=== PATIENT | female | born 1980 | race Caucasian/White ===

== ENCOUNTER → 2019-11-12 09:27 | Outpatient (CLI) | payer BC, SELFPAY ==
--- NOTE | ~2019-11-12 | MMUS_ITS ---
EXAMINATION: MM diagnostic mammo unilat LT, US breast LT limited HISTORY: Left breast masses on screening mammogram TECHNIQUE: Additional 3-D tomosynthesis images of the left breast were performed and synthetic 2-D im ages were generated. CAD analysis was submitted and interpreted. High resolution limited left breast ultrasound was performed. COMPARISON: 10/27/2019 FINDINGS: MAMMOGRAPHIC FINDINGS: There is a persistent 7.2 x 5.9 mm oval, circumscribed, high density mass with central lucency in the posterior third of the upper outer quadrant of the breast at the 1:00 location 7 cm from the nipple. A 6.1 x 3.6 mm mass with similar mammographic features is seen in the middle third of the breast at the 2:00 location 4 cm from the nipple. ULTRASOUND: Masses at the 1:00 location 6 cm from the nipple and 3:00 location 4 cm from the nipple corresponding to the mammographic findings in question and have the appearance of intramammary lymph nodes. IMPRESSION: 1. No mammographic or sonographic evidence of malignancy. 2. Recommend routine screening mammography in one year. BI-RADS Category 2: Benign finding(s). Reviewed, dictated and finalized at location A. [facility] IMPRESSION: 1. No mammographic or sonographic evidence of malignancy. 2. Recommend routine screening mammography in one year. BI-RADS Category 2: Benign finding(s).
== END ==
PROVIDERS: PCP Internal Medicine; Visit Provider Obstetrics & Gynecology
DX: R92.2 Inconclusive mammogram (principal)
CPT/HCPCS: 76642; 77065

== ENCOUNTER 2021-11-07 08:51 | Outpatient (CLI) | payer BC, SELFPAY ==
--- NOTE | 2021-11-07 08:45 | ECG_ITS ---
Measurements Intervals [place] Rate: 87 P: 53 [place]: 145 QRS: 21 QRSD: 84 T: 72 QT: 351 QTc: 423 Interpretive Statements SINUS RHYTHM DELAYED PRECORDIAL R/S TRANSITION BORDERLINE ST-T WAVE ABNORMALITY- HIGH LATERAL LEADS BASELINE ARTIFACT- I, III, AVR, AVL, AVF BORDERLINE ECG Electronically Signed On 11-07-2021 9:23:14 [employer]ARM [employer]QU[employer]MENT SERVICE TECHNICIAN by Rasta Gibbs D.O.
== END 2021-11-07 08:52 | disposition home or self-care (01) ==
LOC: ANHSURGERY 08:54
PROVIDERS: PCP Internal Medicine; Visit Provider Obstetrics & Gynecology
DX: N94.6 Dysmenorrhea, unspecified (principal); I10 Essential (primary) hypertension; Z01.818 Encounter for other preprocedural examination; R94.31 Abnormal electrocardiogram [ECG] [EKG]
CPT/HCPCS: 36415; 86850; 86900; 86901; 93005

== ENCOUNTER 2021-11-08 01:15 | Day surgery (SDC) | payer BC, SELFPAY ==
[2021-11-03 17:17] VITALS: BMI 29.2
--- NOTE | 2021-11-03 17:40 | PC.NURSE ---
Report to the Outpatient Waiting Room, entrance under the green pavilion located off [facility], at time 0600 on date11/08/21. OR Time: 0730. - You and your visitor will be asked a series of questions to screen for COVID 19 for your protection. - A mask is required within the hospital. - Only one visitor is allowed at this time. Patient visitors will be guided where to wait when not with patient. Preoperative COVID Testing Requirements: No COVID Test needed if: (proof is required; if not received patient will have Rapid Test prior to entry) - Patient has received COVID Vaccine at least 14 days prior to procedure date or - Patient has positive COVID test result within last 90 days of surgery date. COVID Test needed if above criteria is not met If not COVID vaccinated a COVID test must be conducted within 72 hours of surgery and patient is asked to isolate self from time of testing until procedure. You will go to the [facility] for your COVID testing. The [facility] is located at the corner of [address] [facility]. You will only be called if COVID results are positive and your surgeon may reschedule your elective surgery date. Patients may have clear liquids (water, carbonated beverages, clear teas, apple juice) until 3 hours prior to surgery with a maximum of 20 ounces. - No food from midnight until time of surgery - Infants may have breast milk until 4 hours before surgery, infant formula 6 hours prior to surgery. - Children will be allowed to drink immediately following surgery. If applicable, please bring a bottle or sippy cup to assist with drinking. Juice, water, soda, and popsicles are readily available. For infants on formula, please bring formula the day of surgery. Pacifiers are allowed. Take the following medications with a SIP of water the morning of surgery: n/a Medications to discontinue per physician losartan Date to take last dose 11/07/21 Please no make-up, nail indonesian, hairspray, perfume, deodorant, or body powder the day of surgery. No jewelry (including any body piercings) or valuables the day of surgery, leave them at home. Please take a shower or bath the night before, or the morning of, surgery with an antibacterial soap. Wear comfortable, loose fitting clothing. Children are encouraged to wear pajamas. - Jewelry must be removed prior to entering the operating room. Rings and piercings that are not removed may be cut off. - The hospital will not accept responsibility for valuables. - Please leave all valuables, including medications, at home the day of surgery. If you are going home after surgery, a licensed bulk tank driver must drive you home. - NO public transportation without another adult. - We recommend that an adult stay with you for 24 hours following discharge. - We also recommend that you do not drive, make important decision, drink alcoholic beverages, or take any drugs that were not prescribed by your health care provider for at least 24 hours after your discharge time. For Pediatric surgeries, we recommend two adults accompany the child home (only one inside the building at this time). Follow any additional instructions given to you from your surgeon. Telephone instructions given to Lanette James and asked if any additional questions and then verbalized understanding. Patient advised to call surgeon office or pre surgery nurse liaison [phone] if any additional questions.
[2021-11-08] VITALS (15 sets, daily range): BP systolic 127–175; BP diastolic 70–100; PULSE 55–90; RESP 11–20; TEMP 36.1–36.7; O2SAT 96–100
[2021-11-08] MEDS: LACTATED RINGERS 1,000 ML 30 ML IV CONT ×2 (06:35→10:00)
[2021-11-08] MEDS: ACETAMINOPHEN 500 MG TABLET 1000 MG PO (06:36)
[2021-11-08] MEDS: KETOROLAC 15 MG/ML VIAL (*BKC) IV PUSH (06:38)
--- NOTE | 2021-11-08 06:59 | P.PNAN_ITS ---
Anes - Initial Pre Proc Eval Procedure: Operation Date: 11/08/21 07:30 Proposed Procedures p Total Laparoscopic Hysterectomy with Bilateral Salpingectomy - Sachin Leggett MD Date/Time: 11/08/21 06:59 Surgeon: Sachin Leggett MD Pre Op Diagnosis: dysmenorrhea, failed previous medical treatment Patient Data Age: 41 Gender: F Height: 1.68 m Weight: 83 kg Last Vital Signs Temp 36.1 C L 11/08/21 06:18 Pulse 72 11/08/21 06:18 Resp 16 11/08/21 06:18 BP 130/82 11/08/21 06:18 Pulse Ox 99 11/08/21 06:18 Allergies Allergy/AdvReac Type Severity Reaction Status Date / Time Penicillins Allergy Unknown Verified 11/08/21 06:22 Home Medications Medication Instructions Recorded Confirmed Type duloxetine 60 mg capsule,delayed 60 mg PO DAILY 10/26/19 11/08/21 History release topiramate 25 mg tablet 25 mg PO DAILY 10/26/19 11/08/21 History losartan 25 mg tablet 25 mg PO DAILY #90 tablet 06/14/21 11/08/21 Rx Laboratory Tests 11/08/21 06:31 Beta HCG, Quant Pending Patient hx anesthesia problems: none Family hx anesthesia problems: none Results Review: All pre-operative results and documents have been reviewed as part of the pre-operative evaluation. [facility] Past Medical History Medical History ADD (attention deficit disorder) Allergies HTN (hypertension) Migraines Surgical History Surgical History Delivery by section History of surgery on arm left arm and hand surgery post dog bite Family History Family History Father HLD (hyperlipidemia) Heart problem Social History Social History Smoking status: Never smoker Alcohol intake: current Alcohol use details: socially Substance use: current Substance use type: marijuana Last use: 11/03/2021 Living arrangements: with family Spiritual care concerns: No Anes - Eval Final PreProcedure Day of Procedure 01/26/22 06:59 Patient weight: overweight Heart: regular rate and rhythm Lungs: clear to auscultation Airway: Mallampati scale class III Neurological: alert and oriented Last oral intake: >/= 8 hours ASA classification: II Emergent: no Anesthetic plan: proceed Anesthesia type and monitoring: general ETT and standard monitoring Results Review: All pre-operative results and documents have been reviewed as part of the pre-operative evaluation. Informed Consent: The patient's anesthetic plan and its attendant risks and benefits were discussed with the patient/family/POA. Questions were solicited and answers provided to the satisfaction of the patient/family/POA.
[2021-11-08] MEDS: SCOPOLAMINE 1.5 MG PATCH TRANSDERM (07:02)
--- NOTE | 2021-11-08 07:08 | WPDHPUPDATE1 ---
History and Physical Update Update Date/Time: 11/08/21 07:08 History and Physical has been reviewed, including an updated exam of the patient. There are NO changes in the patient's condition. Risks, benefits, and alternatives have been discussed and questions answered. Patient agrees to proceed with procedure.
[2021-11-08 07:17] LABS: Beta HCG Quantitative < 2.39 mIU/ML
[2021-11-08] MEDS: ceFAZolin 2 GM/D5W 50 ML 2 GM/50 ML BAG IVPB (07:44)
--- NOTE | 2021-11-08 10:09 | P.OP_ITS ---
Procedure Note - Detailed Date of Procedure 11/08/21 Pre-op Diagnosis dysmenorrhea, failed previous medical treatment Post-op Diagnosis same Procedure Performed Total laparoscopic hysterectomy and bilateral salpingectomy. Left ovarian cy stectomy Surgeon Sachin Leggett MD Anesthesia general Indications Severe dysmenorrhea Findings Moderate sized uterus, normal appearing ovaries with left ovarian cyst and normal-appearing tubes. Description of Procedure This patient was taken to the operating room. She was prepped and draped in the dorsal lithotomy position after induction of general anesthesia. The uterine manipulator and Lars cup were placed. This was done with a speculum and tenaculum. The speculum was placed. The cervix was grasped with a tenaculum. The stay sutures were placed at 3 and 9:00 a.m.. The stay sutures of 0 Vicryl were brought through the appropriately sized Lars cup. The tip of the REGINA manipulator was placed in the intrauterine cavity. The cup was slid into place around the cervix and into the fornices. It was locked into place. The sutures were then wrapped around the handle and tied under tension. A 5 mm skin incision was made in the left upper quadrant the abdomen. A 5 mm trocar was inserted into the intrauterine cavity under direct visualization of the scope. Pneumoperitoneum was achieved. A left lower quadrant 11 mm incision was made with scalpel. An 11 mm trocar was inserted into the anterior abdominal cavity under direct visualization the scope. A 5 mm infraumbilical incision was made with a scalpel and a 5 mm trocar was inserted the intra-abdominal cavity under direct visualization of the scope. Left ovarian cystectomy was performed using sharp and blunt dissection and cautery. Bilateral ureteral lysis was performed. This was done from the pelvic brim down to the uterine artery. This was done with careful dissection using sharp and blunt dissection. The fallopian tubes were removed bilaterally. The mesosalpinx around the fallopian tubes were cauterized transected with LigaSure cautery. This was done in a bilateral fashion from the ovary to the uterine cornua. The fallopian tube was transected at the uterine cornu and amputated. The tube was taken out the left lower quadrant trocar site. In a stepwise fashion along the lateral aspects of the uterus the round ligament and broad ligaments were cauterized transected down to the level of the uterine arteries. A bladder flap was created in the bladder was moved distally to the end of the cervix and over the Lars cup. The bilateral uterine arteries were cauterized and transected. Colpotomy was then performed. In a circumferential fashion the vagina was transected using unipolar cautery. The incision was made down on the Lars cup. The uterus and cervix were taken out through the vagina. A pneumo occluder was placed in the vagina. The vaginal cuff was closed with a 0 V lock suture in a running fashion. The pelvis was irrigated with copious amounts antibiotic irrigation. The ureters were again examined and found to be intact and flowing freely under the uterine arteries into the bladder. The bladder was intact. It was examined directly. The vagina was irrigated with Betadine solution after removal of the Pneumo occluder. The patient was taken to recovery room. She was stable condition. Sponge lap and needle counts were correct x2. Estimated Blood Loss 100 Urine Output -850.0 Drains Yes Packing No Pathology yes Complications No immediate complications Condition stable Disposition floor
[2021-11-08] MEDS: fentaNYL CITRATE INJ (*CRX) 100 MCG/2 ML VIAL 25 MCG IV PUSH ×7 (10:21→12:25)
--- NOTE | 2021-11-08 12:45 | PC.NURSE ---
This patient, Lanette James, was received from PACU on 11/08/21 at 1245. Patient/family oriented to unit policies and routines
[2021-11-08] MEDS: DEXTROSE 5%/0.45% SOD CHL 1,000 ML 125 ML IV CONT (13:29)
[2021-11-08] MEDS: KETOROLAC 30 MG/ML VIAL (*BKC) IV PUSH (13:30)
[2021-11-08] MEDS: HYDROcodone/acetaminophen (*CRX) 10-325 MG TABLET 1 TAB PO ×2 (14:43→20:19)
[2021-11-08] MEDS: DULoxetine HCL 60 MG CAPSULE.DR PO (14:44)
[2021-11-08] MEDS: TOPIRAMATE 25 MG TABLET PO (20:19)
[2021-11-08] MEDS: LOSARTAN POTASSIUM 25 MG TABLET PO (20:19)
[2021-11-09 00:10] VITALS: BP 128/85; PULSE 78; RESP 18; TEMP 37.1
[2021-11-09] MEDS: IBUPROFEN 600 MG TABLET PO ×2 (00:10→08:51)
[2021-11-09] MEDS: HYDROcodone/acetaminophen (*CRX) 10-325 MG TABLET 1 TAB PO ×3 (00:11→08:50)
[2021-11-09 05:26] VITALS: BP 130/85; PULSE 82; RESP 16; TEMP 37.1
--- NOTE | 2021-11-09 08:05 | PM.GYNPNOP ---
[employer] - A/P Postoperative Procedures: Procedures Operation Date: 11/08/21 07:30 Actual Procedure Side Surgeon p Total Laparoscopic Hysterectomy with Bilateral Salpingectomy Bilateral Sachin Leggett MD Postoperative day: 1 Postoperative status: doing well Postoperative plan: see orders Time Spent With Patient Time: Total time spent is greater than 50% in coordination of care (as documented) at patient's floor/unit and/or counseling patient: Time with patient: less than 15 minutes [employer]- PN:Subj Post-Op Subjective Date/time seen: 11/09/21 08:05 Subjective: patient reports feeling better, patient has no complaints and pain is well controlled Exam Const: General: healthy appearing, comfortable and no acute distress Resp: Auscultation: clear to auscultation bilaterally, no rales, no rhonchi and no wheezes Cardio: Rate: regular rate Heart sounds: no click, no murmurs and no rubs GI: Inspection: non-distended Auscultation: normal bowel sounds Extrem: General: normal to inspection, no pedal edema and no calf tenderness [employer] - PN: Obj Data Vital Signs Vital Signs: Vital Signs - 24 hr 11/08/21 10:00 11/08/21 10:15 11/08/21 10:30 Temperature 97.6 F Pulse Rate 77 55 L 61 Respiratory Rate 11 L 17 15 Blood Pressure 132/70 159/86 H 163/84 H Pulse Oximetry 100 100 100 11/08/21 10:45 11/08/21 11:00 11/08/21 11:15 Temperature Pulse Rate 64 79 80 Respiratory Rate 14 15 11 L Blood Pressure 175/92 H 166/86 H 140/93 H Pulse Oximetry 100 100 96 11/08/21 11:30 11/08/21 11:45 11/08/21 12:00 Temperature Pulse Rate 56 L 70 80 Respiratory Rate 15 14 12 Blood Pressure 142/92 H 155/96 H 147/99 H Pulse Oximetry 96 96 96 11/08/21 12:15 11/08/21 12:27 11/08/21 12:45 Temperature 97.3 F L 98.0 F Pulse Rate 90 64 81 Respiratory Rate 14 13 18 Blood Pressure 160/100 H 141/98 H 127/79 Pulse Oximetry 98 99 97 11/08/21 16:00 11/08/21 20:18 11/09/21 00:10 Temperature 98.1 F 98 F 98.7 F Pulse Rate 83 90 78 Respiratory Rate 16 16 18 Blood Pressure 146/82 H 141/84 H 128/85 Pulse Oximetry 98 11/09/21 05:26 Temperature 98.8 F Pulse Rate 82 Respiratory Rate 16 Blood Pressure 130/85 Pulse Oximetry Intake/Output Intake/Output: Intake & Output 11/06/21 11/07/21 11/08/21 11/09/21 23:59 23:59 23:59 23:59 Intake Total 1250 650 Output Total 900 550 Balance 350 100 Meds/Results Medications: Active Medications Generic Name Dose Route Start Last Admin Trade Name Freq PRN Reason Stop Dose Admin Hydrocodone Bitart/Acetaminophen 1 tab 11/08/21 12:42 Hydrocodone/Acetaminophen (*Crx) 5-325 Mg Tablet PO Q3H PRN Pain Rated 5 or Less Hydrocodone Bitart/Acetaminophen 1 tab 11/08/21 12:42 11/09/21 05:33 Hydrocodone/Acetaminophen (*Crx) 10-325 Mg Tablet PO 1 tab Q3H PRN Administration Pain Rated 6 or Greater Duloxetine HCl 60 mg 11/08/21 13:00 11/08/21 14:44 Duloxetine Hcl 60 Mg Capsule.Dr PO 60 mg DAILY VLADIMIR Administration Ibuprofen 600 mg 11/08/21 12:42 11/09/21 00:10 Ibuprofen 600 Mg Tablet PO 600 mg Q6H PRN Administration Cramping Ketorolac Tromethamine 30 mg 11/08/21 12:42 11/08/21 13:30 Ketorolac 30 Mg/Ml Vial (*Bkc) IV PUSH 11/13/21 12:41 30 mg Q6H PRN Administration Pain Rated 4-6 Losartan Potassium 25 mg 11/08/21 13:00 11/08/21 20:19 Losartan Potassium 25 Mg Tablet PO 25 mg DAILY VLADIMIR Administration Naloxone HCl 0.1 mg 11/08/21 12:42 Naloxone Hcl 0.4 Mg/Ml Vial IV PUSH Q2M PRN Respiratory rate less than 10 Ondansetron HCl 4 mg 11/08/21 12:42 Ondansetron Inj 4 Mg/2 Ml Vial IV PUSH Q6H PRN Nausea And Vomiting Topiramate 25 mg 11/08/21 13:00 11/08/21 20:19 Topiramate 25 Mg Tablet PO 25 mg DAILY VLADIMIR Administration
[2021-11-09 08:30] VITALS: BP 125/80; PULSE 82; RESP 16; TEMP 37.1; O2SAT 96
[2021-11-09] MEDS: DULoxetine HCL 60 MG CAPSULE.DR PO (08:50)
--- NOTE | 2021-11-09 09:33 | WPDANESPN ---
Anes - Prog Note Post-Op Date/Time: 11/09/21 09:33 Cardiovascular status: normal Respiratory status: normal Airway patency: baseline Mental status: baseline Post-Op hydration status: normal Vital Signs: Last Vital Signs Temp 37.1 C 11/09/21 05:26 Pulse 82 11/09/21 05:26 Resp 16 11/09/21 05:26 BP 130/85 11/09/21 05:26 Pulse Ox 98 11/08/21 16:00 Pain Score (VAS): 3 I/O: Intake & Output 11/08/21 11/09/21 11/09/21 23:59 07:59 15:59 Intake Total 200 650 Output Total 600 550 Balance -400 100 Post-procedural complaints: none Patient Feedback: Patient satisfied with anesthetic care.
== END 2021-11-09 10:40 | disposition home or self-care (01) ==
LOC: ANHSURGERY 07:03 → ANHOB2 12:49
PROVIDERS: Anesthesiology; PCP Internal Medicine; Visit Provider Obstetrics & Gynecology
PROC: 0UT9FZZ Resection of Uterus, Via Natural or Artificial Opening With Percutaneous Endoscopic Assistance (ICD-10-PCS; CPT 58571; principal; 2021-11-08 07:30)
DX: N94.6 Dysmenorrhea, unspecified (principal); E28.2 Polycystic ovarian syndrome; R87.612 Low grade squamous intraepithelial lesion on cytologic smear of cervix (LGSIL); F41.9 Anxiety disorder, unspecified; I10 Essential (primary) hypertension; F17.210 Nicotine dependence, cigarettes, uncomplicated; F98.8 Other specified behavioral and emotional disorders with onset usually occurring in childhood and adolescence; F12.90 Cannabis use, unspecified, uncomplicated
CPT/HCPCS: 58571; 58662; 36415; 84702; 88307; 99199; A9270; J0690; J1100; J1885; J2405; J2704; J2710; J3010; J7120

== ENCOUNTER 2022-03-06 13:31 | Outpatient (RCR) | payer BC, SELFPAY ==
[2022-03-06] MEDS: ACETAMINOPHEN 325 MG TABLET 650 MG PO (13:34)
[2022-03-06] MEDS: FAMOTIDINE 20 MG TABLET PO (13:34)
[2022-03-06] MEDS: diphenhydrAMINE HCl CAP 25 MG CAPSULE PO (13:34)
[2022-03-06 13:36] VITALS: BP 116/88; PULSE 80; RESP 20; TEMP 36.6; O2SAT 100
[2022-03-06] MEDS: BEBTELOVIMAB 175 MG/2 ML VIAL IV PUSH (13:53)
[2022-03-06 14:31] VITALS: BP 111/73; PULSE 66; RESP 20; O2SAT 98
== END 2022-03-06 16:24 ==
LOC: AMCINF 13:31
PROVIDERS: Referring Provider Clinical Nurse Specialist; Visit Provider Internal Medicine Hematology & Oncology
DX: U07.1 COVID-19 (principal); I10 Essential (primary) hypertension
CPT/HCPCS: A9270; M0222; Q0222

== ENCOUNTER 2022-06-26 11:19 | Emergency (ER) | payer BC, SELFPAY ==
[2022-06-26 11:26] VITALS: BP 138/92; PULSE 80; RESP 18; TEMP 36.4; O2SAT 100
--- NOTE | 2022-06-26 11:28 | ED.HEATRA ---
HPI - Head Injury General Chief complaint: Head Injury Stated complaint: head injury Time Seen by Provider: 06/26/22 11:25 Source: patient, RN notes reviewed and old records reviewed Mode of arrival: ambulatory Limitations: no limitations History of Present Illness HPI Narrative: 42-year-old female presents to the [facility] with a laceration that occurred approximately 10 PM last night, 13 hours ago. Patient states she fell backwards hit her head. Reports that she felt dazed and was not making sense. Denies any neck pain or back pain. Reports a headache posteriorly. Has taken Tylenol with some relief. Denies any blurry vision or change in vision. Denies any nausea or vomiting. Denies passing out Unknown last tDap Related Data Home Medications Medication Instructions Recorded Confirmed duloxetine 60 mg capsule,delayed 60 mg PO DAILY 10/26/19 03/06/22 release topiramate 25 mg tablet 25 mg PO DAILY 10/26/19 03/06/22 Allergies Allergy/AdvReac Type Severity Reaction Status Date / Time Penicillins Allergy Unknown Verified 03/06/22 13:37 Review of Systems Review of Systems: All systems reviewed & are unremarkable except as noted in HPI and below Constitutional: Constitutional: Reports no additional constitutional complaints, Denies chills and Denies fever(s) Eyes: Eyes: Reports no additional eye complaints ENT: Reports system reviewed and no additional complaints, except as documented Cardiovascular: Cardiovascular: Reports no additional cardiovascular complaints Respiratory: Respiratory: Reports no additional respiratory complaints Gastrointestinal: Gastrointestinal: Reports no additional gastrointestinal complaints Musculoskeletal: Musculoskeletal: Reports no additional musculoskeletal complaints Integumentary/Breasts: Skin/Breast: Reports as per HPI and Reports wounds Neurologic: Reports as per HPI and Reports headache(s) Psychiatric: Psychiatric: Reports no additional psychiatric complaints Allergic/Immunologic: Allergic/Immunologic: Reports no additional allergic/immunologic complaints [facility] Past Medical History Medical History ADD (attention deficit disorder) Allergies HTN (hypertension) Migraines Surgical History Surgical History Delivery by section History of surgery on arm left arm and hand surgery post dog bite Family History Family History Father HLD (hyperlipidemia) Heart problem Social History Social History Smoking status: Never smoker Alcohol intake: current Alcohol use details: socially Substance use: current Substance use type: marijuana Last use: 11/03/2021 Spiritual care concerns: No Comments At the time of my signature, I reviewed and agree with the nursing past medical, surgical, social, and family history. There is no relevant family history pertinent to the patient complaint. Exam Const: General: healthy appearing, no acute distress and alert Nutritional Appearance: well nourished Orientation/consciousness: patient oriented x3 Limitations: no limitations HENMT: Head: laceration (2.5cm laceration, Bleeding controlled. ) Ears: external ears normal, TM's normal bilaterally and EAC's normal General nose exam: Normal external nose present Face and sinus: normal facial exam Mouth: Yes Normal oral and palatal mucosa present, Yes lip normal and Yes moist mucous membranes Eyes: General: appearance normal, both eyes and all related structures Conjunctivae: conjunctivae normal Pupils: Equal, round and reactive pupils present EOM: EOMs intact bilaterally Direct Ophthalmoscopy: no photophobia Neck: Neck: normal visual inspection, no lymphadenopathy and no meningeal signs Chest: Chest palpation & inspection: normal inspec
[2022-06-26] MEDS: TETANUS,DIPHTHERIA,AC PERTUSSIS ADULT (0.5 ML) BOOSTRIX IM (11:59)
== END 2022-06-26 12:15 | disposition home or self-care (01) ==
PROVIDERS: Emergency Provider Nurse Practitioner; PCP Internal Medicine
DX: S09.90XA Unspecified injury of head, initial encounter (principal); S01.01XA Laceration without foreign body of scalp, initial encounter; W19.XXXA Unspecified fall, initial encounter; Z23 Encounter for immunization; I10 Essential (primary) hypertension
CPT/HCPCS: 12001; 90471; 90715; 99213; G0463

== ENCOUNTER 2022-06-26 16:55 | Emergency (ER) | payer BC, SELFPAY ==
[2022-06-26 17:25] VITALS: BP 145/98; PULSE 68; RESP 18; TEMP 36.1; O2SAT 100
--- NOTE | 2022-06-26 18:41 | PC.NURSE ---
Patient called for room placement at this time without answer in waiting room.
== END 2022-06-26 18:41 | disposition left against medical advice (07) ==
PROVIDERS: PCP Internal Medicine
DX: Z53.21 Procedure and treatment not carried out due to patient leaving prior to being seen by health care provider (principal)
CPT/HCPCS: 99199

== ENCOUNTER 2023-05-19 10:54 | Emergency (ER) | payer BC, SELFPAY ==
[2023-05-19 11:02] VITALS: BP 130/91; PULSE 87; RESP 16; TEMP 36.2; O2SAT 100
--- NOTE | 2023-05-19 11:08 | ED.URI ---
HPI - URI/Sore Throat General Chief Complaint: Ear Stated Complaint: Double Ear infection; poison sharyn Time Seen by Provider: 05/19/23 11:09 Source: patient Mode of arrival: ambulatory Limitations: no limitations History of Present Illness HPI Narrative: 43-year-old female presented for complaint of bilateral ear pressure for 1 week. Endorses it feels like water is in the ear and pain radiates to the neck. Has been swimming in the pool. She has used hydrogen peroxide, pain relief drops with no relief. She denies ear drainage, dizziness, tinnitus, nausea, vomiting, fevers or chills. Additionally she reports poison sharyn to both arms for 1 week. Started after weed eating. She has used [id number] creams without relief. She has not taken oral medications for itch relief. Denies lip, tongue, or throat swelling, shortness of breath or wheezing. Denies changes to soap, detergent, lotion, or any other exposures. No one else in the house or any contacts with similar symptoms. Related Data Home Medications Medication Instructions Recorded Confirmed duloxetine 60 mg capsule,delayed 60 mg PO DAILY 10/26/19 05/19/23 release topiramate 25 mg tablet 25 mg PO DAILY 10/26/19 05/19/23 dextroamphetamine-amphetamine ER 30 mg PO DAILY 02/05/23 05/19/23 30 mg 24hr capsule,extend release ubrogepant 50 mg tablet (Ubrelvy) 50 mg PO ONCE 02/05/23 05/19/23 Allergies Allergy/AdvReac Type Severity Reaction Status Date / Time Penicillins Allergy Unknown Verified 05/19/23 11:03 Review of Systems Review of Systems: CONSTITUTIONAL: Denies malaise, chills, or fever. EYES: Denies visual changes, redness, or discharge. ENT: Denies rhinorrhea, congestion, sinus pain, and sore throat. Reports ear pain CARDIOVASCULAR: Denies chest pain, palpitations, or edema. RESPIRATORY: Denies cough or dyspnea. GASTROINTESTINAL: Denies abdominal pain, nausea, vomiting, diarrhea SKIN: reports rash and itching. MUSCULOSKELETAL: Denies myalgia. NEUROLOGIC: Denies headache. All systems reviewed & are unremarkable except as noted in HPI and below PMFSH Past Medical History Medical History ADD (attention deficit disorder) Allergies HTN (hypertension) Migraines Surgical History Surgical History Delivery by section History of surgery on arm left arm and hand surgery post dog bite Family History Family History Father HLD (hyperlipidemia) Heart problem Social History Social History Smoking status: Never smoker Alcohol intake: current Alcohol use details: socially Substance use: current Substance use type: marijuana Last use: 11/03/2021 Lack of Transportation: No Lack of Food: Never True Current Housing: I Have Housing Concerned About Future Housing: No Difficulty Paying Gas/Electric Bills: No Difficulty Paying for Meds: No Currently Unemployed: No Education: Master's Degree or Higher Difficulty w/ Childcare or Family Care: No Living arrangements: with family Spiritual care concerns: No Comments At time of signature, agree with nursing past medical, surgical, social and family history. There is no relevant family history pertinent to the presenting complaint Exam Narrative: GENERAL: Well-appearing, and in no acute distress. HEAD: Normocephalic EYES: PERRLA, conjunctivae clear ENT: Nares clear. Mucous membranes moist. Left TM pearly plummer with dull light reflex, right TM erythematous and bulging with purulent effusion. Bilateral canals erythematous tender and swollen, no purulent drainage, bilateral tragal tenderness. Oropharynx not erythematous without lesions. Tonsils not enlarged and without exudate, no drooling, no hoarseness, no trismus, uvula midline. NECK: Supple. No lymph
== END 2023-05-19 11:20 | disposition home or self-care (01) ==
PROVIDERS: Emergency Provider Nurse Practitioner Family; PCP Internal Medicine
DX: H60.503 Unspecified acute noninfective otitis externa, bilateral (principal); H66.001 Acute suppurative otitis media without spontaneous rupture of ear drum, right ear; L25.9 Unspecified contact dermatitis, unspecified cause; I10 Essential (primary) hypertension
CPT/HCPCS: 99213; G0463

== ENCOUNTER 2025-03-21 13:28 | Emergency (ER) | payer BC, SELFPAY ==
[2025-03-21 13:39] VITALS: BP 128/84; PULSE 78; RESP 16; TEMP 36.6; O2SAT 100
--- NOTE | 2025-03-21 13:54 | ED.SKABFB ---
HPI - Skin/Abscess/Foreign Bdy General Chief complaint: Skin/Abscess/Foreign Body Stated complaint: poison darlene on face Time Seen by Provider: 03/21/25 13:54 Source: patient Mode of arrival: ambulatory Limitations: no limitations History of Present Illness HPI narrative: 44 y/o female presented for c/o poison darlene rash spreading from arms to face. Says she developed the rash after pulling weeds. Has been applying Tecnu cream to the arms. Denies lip, tongue, or throat swelling, shortness of breath or wheezing. Denies changes to soap, detergent, lotion, or any other exposures. No one else in the house or any contacts with similar symptoms. Related Data Home Medications ?Medication ?Instructions ?Recorded ?Confirmed ?Last Taken ?Type duloxetine 60 mg capsule,delayed 60 mg PO DAILY 10/26/19 03/21/25 11/07/21 History release topiramate 25 mg tablet 25 mg PO DAILY 10/26/19 03/21/25 11/07/21 History ubrogepant 50 mg tablet (Ubrelvy) 50 mg PO ONCE 02/05/23 03/21/25 Unknown History dextroamphetamine-amphetamine 15 15 mg PO BID 08/30/23 03/21/25 Unknown History mg tablet Allergies Allergy/AdvReac Type Severity Reaction Status Date / Time Penicillins Allergy Unknown Verified 03/21/25 14:00 pork derived (porcine) AdvReac Abdominal Verified 03/21/25 14:00 Pain poison darlene Allergy Intermediate Unknown Uncoded 03/21/25 14:00 Review of Systems Review of Systems: CONSTITUTIONAL: Denies body aches, fever, chills, or sweats. EYES: Denies visual changes, redness, or discharge. ENT: Denies rhinorrhea, congestion CARDIOVASCULAR: Denies chest pain, palpitations, or edema. RESPIRATORY: Denies cough or dyspnea. GASTROINTESTINAL: Denies abdominal pain, nausea, vomiting, or diarrhea. SKIN: per HPI MUSCULOSKELETAL: Denies back pain, joint pain, or myalgia. NEUROLOGIC: Denies headache, numbness, tingling, or weakness. [facility] Past Medical History Medical History ADD (attention deficit disorder) Allergies HTN (hypertension) Migraines Sprain of medial collateral ligament of right knee Surgical History Surgical History Delivery by section History of surgery on arm left arm and hand surgery post dog bite Family History Family History Father HLD (hyperlipidemia) Heart problem Social History Social History Smoking status: Never smoker Alcohol intake: current Alcohol use details: socially Substance use: current Substance use type: marijuana Last use: 11/03/2021 Lack of Transportation: No Lack of Food: Never True Current Housing: I Have Housing Concerned About Future Housing: No Difficulty Paying Gas/Electric Bills: No Difficulty Paying for Meds: No Currently Unemployed: No Education: Master's Degree or Higher Difficulty w/ Childcare or Family Care: No Living arrangements: with family Spiritual care concerns: No Comments At time of signature, I have reviewed and agree with nursing past medical, surgical, social and family history unless otherwise noted. Please see nursing chart for further information. There is no relevant family history pertinent to the presenting complaint Exam Narrative: GENERAL: Well-appearing HEAD: Normocephalic, atraumatic. EYES: conjunctivae clear, and EOMI. ENT: Mucous membranes moist. Oropharynx without edema, erythema or lesions. NECK: Supple. No lymphadenopathy CHEST: Clear to auscultation. HEART: Regular rate and rhythm. SKIN: Warm, dry. Face appears erythematous and swollen. Eyes are not occluded. Scattered vesicular rash noted to face and arms c/w contact dermatitis. NEURO: Alert and oriented x3. Course Course Emergency Course: Patient is aware of diagnosis, understands and agrees to treatment plan. Anticipatory guidance given. Patient agrees to follow-up as directed and is aware of reasons to seek care at the emergency department. Portions of this record may have been created with voice recognition software Level of Care: Express Care Visit Vital Signs Vital signs: Vital Signs Temperature 97.9 F 03/21/25 13:39 Pulse Rate 78 03/21/25 13:39 Respiratory Rate 16 03/21/25 13:39 Blood Pressure 128/84 03/21/25 13:39 Pulse Oximetry 100 03/21/25 13:39 Temperature 97.9 F 03/21/25 13:39 Pulse Rate 78 03/21/25 13:39 Respiratory Rate 16 03/21/25 13:39 Blood Pressure 128/84 03/21/25 13:39 Pulse Oximetry 100 03/21/25 13:39 Reviewed MDM - Skin/Abscess/Foreign Bdy MDM Narrative Medical decision making narrative: Discussed physical exam findings. IM Solumedrol given in clinic. Rx steroid and pepcid. Advised supportive measures and signs/symptoms to go to the ER. Pt is appropriate for outpt treatment and f/u. Differential Diagnosis Differential diagnosis: Likely abscess of skin or subcutaneous tissue, viral exanthem, dermatophytosis, urticaria, herpes zoster, cellulitis, eczema, insect bites, impetigo and contact dermatitis Discharge Plan Discharge Clinical Impression: Contact dermatitis Patient Disposition: Home Condition: Stable Instructions: Antibiotic Form, Poison Darlene (ED) Additional Instructions: Take steroids and Pepcid as directed. prednisone start 03/22 Famotidine start today Over the counter Benadryl every 8 hours as needed Cool compresses to the sites of itching, avoid hot water. Avoid scratching to reduce the risk of infection Follow up with your primary care provider as needed in 1 week Go to the ER for worsening symptoms or concerns (lip, tongue, throat swelling/itching, trouble breathing etc) Patient Language: Wolof Prescriptions: New famotidine [Pepcid] 40 mg tablet 40 mg PO DAILY Qty: 10 0RF prednisone 20 mg tablet 20 mg PO DAILY Qty: 12 0RF Rx Instructions: take 3 tablets daily for 2 days, then 2 tablets daily for 2 days then 1 tablet daily for 2 days. Start 03/22 No Action duloxetine 60 mg capsule,delayed release(DR/EC) 60 mg PO DAILY topiramate 25 mg tablet 25 mg PO DAILY dextroamphetamine-amphetamine 15 mg tablet 15 mg PO BID Rx Instructions: administer doses at least 4-6 hours apart Ubrelvy 50 mg tablet 50 mg PO ONCE Rx Instructions: as a single dose; may repeat once in >=2 hours after first dose if needed losartan 25 mg tablet 25 mg PO DAILY Qty: 90 1RF Follow-up/Referrals: Sb Corbett DO [Primary Care Provider] - Time of Disposition: 14:02
[2025-03-21] MEDS: methylPREDNISolone SOD SUCC 125 MG VIAL IM (14:07)
== END 2025-03-21 14:28 | disposition home or self-care (01) ==
PROVIDERS: Emergency Provider Nurse Practitioner Family; PCP Internal Medicine
DX: L25.9 Unspecified contact dermatitis, unspecified cause (principal); I10 Essential (primary) hypertension; F98.8 Other specified behavioral and emotional disorders with onset usually occurring in childhood and adolescence
CPT/HCPCS: 96372; 99213; G0463; J2919

== ENCOUNTER 2025-08-20 10:26 | Outpatient (CLI) | payer BC, SELFPAY ==
--- OUTSIDE RECORDS SUMMARY | 2025-08-20 11:09 | XMS_ITS | Encounter Summary ---
Author Organization [facility] Address [address] [facility] [place] [address] Care Team Providers Care Medical Illustrator Name Role Phone Sb Corbett DO Primary Care Provider [phone] Jonas Fay MD Unavailable [phone] Bertin Leggett U Unavailable Unavailable Jonas Fay MD Unavailable [phone] Reason for Referral * Consultation (Routine) - Closed Specialty Diagnoses / Procedures Referred By Conteula t Referred To Contact Obstetrics and Gynecology Diagnoses Molluscum contagiosum genital molluscum contagiosum Unknown, Provider [facility] [employer] [address] [address] Phone: tel: fax: Referral ID Status Reason Start Date Expiration Date V isits Requested Visits Authorized [id number] Closed Specialty Services Required 09/09/2024 09/09/2025 1 1 L SEWER Encounter Details Date Type Department Care Team (Late st Contact Info) Description 09/09/2024 Transcribe Orders [facility] - Centralized Scheduling [facility] [place] [address] Unknown, Provider Molluscum contagiosum Social History Tobacco Use Types Packs/Day Years Used Date Smoking Tobacco: Former Smokeless Tobacco: Never Alcohol Use Standard Drinks/Week Comments Yes 0 (1 standard drink = 0.6 oz pur e alcohol) AUDIT-C Answer Date Recorded Frequency of Alcohol Consumption 2-3 times a renny estrada 01/04/2020 Average Number of Drinks 1 or 2 020 Frequency of Binge Drinking Not on file 12/13 PHQ-2 Answer Date Recorded Patient Health Questionnaire-2 Score 0 03/12/2024 Comments No Sex and Gender Information Value Date Recorded Sex Assigned at Not on file Legal Sex Female 7:10 AM TOWEL SEWER Gender Identity Not on file Sexual Orientation Not on file documented as of this encounter Plan of Treatment Upcoming Encounters Date Type Department Care Team (Late st Contact Info) Description 11/01/2025 12:00 PM TOWEL SEWER Procedure visit [facility] [address] [phone] [place] [address] [address] Scheduled Referrals Name Type Priority Associated Diagnoses Orde r Schedule AMB REFERRAL TO OB-SHEET METAL TECHNICIAN Outpatient Referral Routine Molluscum contagiosum 1 Occurrences starting 09/09/2024 until 09/09/2025 documented as of this encounter Visit Diagnoses Diagnosis Molluscum contagiosum- Primary documented in this encounter Care Teams Medical Illustrator Relationship Specialty Start Date End Date Sb Corbett DO [address] [place] [phone] PCP - General Internal Medicine 03/12/24 Jonas Fay MD [address] [place] [address] Java Spring Developer Urogynecology 03/12/24 Bertin Leggett Update Information Gynecology 03/12/24 Jonas Fay MD [address] [place] [address] Java Spring Developer Urogynecology 03/12/24 documented as of this encounter
--- OUTSIDE RECORDS SUMMARY | 2025-08-20 11:09 | XMS_ITS | Clinical Summary ---
Author Organization [facility] Address [address] [place] [phone] Care Team Providers Care General Manager Food Name Role Phone Unavailable Primary Care Provider Unavailabl e Social History Tobacco Use Types Packs/Day Years Used Date Smoking Tobacco: Never Assessed Comments Unknown Sex and Gender Information Value Date Recorded Sex Assigned at Not on file Legal Sex Female 8:28 AM RECORDS AND INFORMATION MANAGER Gender Identity Not on file Sexual Orientation Not on file Plan of Treatment Health Maintenance Due Date Last Done Comments Hepatitis C Virus (HCV) Screening 1979 TdaP Immunization 1979 Hepatitis B Immunization (1 of 3 - 19+ 3-dose series) 1998 Pap Smear 2000 Cervical Cancer Screening (CCS) 2009 HPV/Cotest 2009 Cologuard 2024 Colonoscopy 2024 Colorectal Cancer Screening 2024 Immunochemical Fecal Occult Blood 2024 Influenza Immunization (#1) 2025 07/05/2020 SARS-COV-2 Immunization ( season) 2025 12/30/2020, 12/09/2020 Respiratory Syncytial Virus (RSV) Immunization (Adult) (1 - 1-dose 75+ series) 2054 Human Papillomavirus (HPV) Immunization Aged Out No longer eligible b ased on patient's age to complete this topic Meningococcal Immunization (ACWY) Aged Out No longer eligible b ased on patient's age to complete this topic Pneumococcal Immunization Combined Aged Out No longer eligible b ased on patient's age to complete this topic Rotavirus Immunization Aged Out No lo nger eligible based on patient's age to complete this topic Insurance [employer] on file
--- OUTSIDE RECORDS SUMMARY | 2025-08-20 11:09 | XMS_ITS | Clinical Summary ---
Author Organization [facility] [employer] Address [address] [facility] [place] [address] Care Team Providers Care Chairman President And Chief Executive Officer Name Role Phone Sb Corbett DO Primary Care Provider Jonas Fay MD Unavailable [phone] Bertin Leggett Unavailable Unavailable Jonas Fay MD Unavailable [phone] Source Comments [facility],non-owned Affiliates and Associated Physician Practices is amultiple site organization consisting of ambulatory clinics and hospital sitesin [place], [place], [place] and [place]. This disclosure is being madepursuant to the Care Everywhere program and may not contain all information available regarding this patient. Last updated 18.[facility] Allergies Active Allergy Reactions Criticality Noted Date Comments Penicillins Other 10/11/2009 Pork Allergy Diarrhea 09/26/2022 Medications * Be aware that medications may not be up to date on this document. Alwaysverify current medications with the patient. losartan (COZAAR) 25 MG tablet Take 1 (one) tablet by mouth once daily 0 Active DULoxetine (CYMBALTA) 60 MG capsule Take 1 (one) capsule by mouth once daily 0 Active amphetamine-dext roamphetamine (Adderall) 15 MG tablet Take 1 (one) tablet by mouth 2 times daily 3 Active imiquimod (Aldara) 5 % creamIndications :Condyloma Apply to affected area Three times a week At bedtime & Wash off in am Leave on the skin no more than 8 hours 12 Each 1 5 Active ubrogepant (Ubrelvy) 100 MG tabletIndication s:Intractable chronic migraine without aura and without status migrainosus Take 1 (one) tablet by mouth daily as needed - may repeat one time for Migraine No more than 2 doses in 24 hours. 16 tablet 11 5 Active topiramate (Topamax) 25 MG tabletIndication s:Intractable chronic migraine without aura and without status migrainosus Take 1 tablet by mouth once daily 90 tablet 5 Active Hospital, Clinic, or Other Facility Administered Medication Ordered Dose Route Frequency Start Date End Date Status onabotulinumtoxin A (Botox) injection 155 UnitsIndications:Intractabl e chronic migraine without aura and without status migrainosus 155 Units IM ONCE 07/28/2025 07/28/2025 Ended Active Problems Problem Noted Date Diagnosed Date Major depression, single episode, in complete re mission 11/10/2024 HTN (hypertension) 03/12/2024 HTN (hypertension) 03/12/2024 Migraine 03/12/2024 Depression 03/12/2024 AFUA (stress urinary incontinence, female) 2023 Urge incontinence of urine 03/12/2024 Anxiety state 05/19/2015 Endometriosis 04/09/2010 Encounters Date Type Department Care Team Description 07/28/2025 12:20 PM CDT Procedure [facility] [employer] [address] [place] [phone] Trenton Ch MD Intractable chronic migraine without aura and without status migrainosus 05/29/2025 Refill [facility] [place] [address] [facility] [address] [place] [address] Trenton Ch MD Refill Request from Last 3 Months Family History Medical History Relation Name Comments None Known Brother High Cholesterol Father Hypertension Father Migraine Father Diabetes - Type 2 Maternal Grandfather Diabetes - Type 2 Maternal Grandmother Sarcoidosis Mother Hypertension Paternal Grandfather Hypertension Paternal Grandmother None Known Sister Relation Name Status Comments Brother Alive Father Alive Maternal Grandfather Maternal Grandmother Mother Alive Paternal Grandfather Paternal Grandmother Sister Alive Social History Tobacco Use Types Packs/Day Years Used Date Smoking Tobacco: Former Cigarettes Passive Smoke Exposure: Past Smokeless Tobacco: Never Tobacco Cessation:Counseling Given: Not Answered Alcohol Use Standard Drinks/Week Comments Yes 0 (1 standard drink = 0.6 oz pur e alcohol) AUDIT-C Answer Date Recorded Frequency of Alcohol Consumption 2-3 times a wee k 01/04/2020 Average Number of Drinks 1 or 2 020 Frequency of Binge Drinking Not on file 12/13 PHQ-2 Answer Date Recorded Patient Health Questionnaire-2 Score 0 02/08/2025 Comments No Sex and Gender Information Value Date Recorded Sex Assigned at Not on file Legal Sex Female 7:10 AM WATER SYSTEMS ENGINEER Gender Identity Not on file Sexual Orientation Not on file Last Filed Vital Signs Vital Sign Reading Time Taken Comments Blood Pressure 128/76 11/10/2024 8:45 AM WATER SYSTEMS ENGINEER Pulse 74 05/20/2024 1:00 PM CDT Temperature 37 C (98.6 F) 02/26/2024 10:55 AM CDT Respiratory Rate 16 07/28/2025 12:46 PM CDT Oxygen Saturation 98% 07/28/2025 12:46 PM CDT Inhaled Oxygen Concentration - - Weight 85.7 kg (189 lb) 05/05/2025 10:47 AM CDT Height 167.6 cm (5' 6) 07/28/2025 12:46 PM CDT Body Mass Index 30.51 05/05/2025 10:47 AM CDT Plan of Treatment Upcoming Encounters Date Type Department Care Team (Late st Contact Info) Description 11/01/2025 12:00 PM WATER SYSTEMS ENGINEER Procedure visit [facility] [address] [facility] [address] [place] [phone] [place] [address] [place] [address] Health Maintenance Due Date Last Done Comments COLOGUARD (AGES 45-75) - COL ON CA SCREENING 1979 COLON MONITORING 1979 COLONOSCOPY - COLON CA SCREENING 1979 CT COLONOGRAPHY - COLON CA SCREENING 1979 Colorectal Cancer Screening 1979 FIT - COLON CA SCREENING 1979 FLEX SIG - COLON CA SCREENING 1979 LIPID TESTING 1979 MAMMOGRAM 1979 HIV SCREENING 1994 HEPATITIS C SCREENING 03/18/1997 DTAP/TDAP/TD VACCINES (1 - Tdap) 1998 HEPATITIS B VACCINE (1 of 3 - 19+ 3-dose series) 1998 SCREENING FOR DIABETES 01/04/2020 COVID-19 VACCINE (3 - 2024-2 6 season) 2025 12/30/2020, 12/09/2020 INFLUENZA VACCINE (#1) 2025 , 07/14/2020, 07/05/2020 ZOSTER VACCINE (1 of 2) 2029 DEPRESSION SCREENING Completed 11/05/2024, 03/12/2024 HIB VACCINE Aged Out No longer eligi ble based on patient's age to complete this topic HPV VACCINE Aged Out No longer eligi ble based on patient's age to complete this topic MENINGOCOCCAL (Group B) VACCINE SHARED DECISION-MAKING Aged Out No longer eligible based on patient's age to complete this topic MENINGOCOCCAL GROUPS A/C/Y/W VACCINE Aged Out No longer eligible b ased on patient's age to complete this topic PNEUMOCOCCAL VACCINE Aged Out No long er eligible based on patient's age to complete this topic Insurance [facility] Care Teams Chairman President And Chief Executive Officer Relationship Specialty Start Date End Date Sb Corbett DO [address] [place] [phone] PCP - General Internal Medicine 03/12/24 Jonas Fay MD [address] [place] [address] [address] [place] [address] Journeyman Electrician Urogynecology 03/12/24 Bertin Leggett Update Information Gynecology 03/12/24 Jonas Fay MD [address] [place] [address] [address] [place] [address] Journeyman Electrician Urogynecology 03/12/24
--- OUTSIDE RECORDS SUMMARY | 2025-08-20 11:09 | XMS_ITS | Clinical Summary ---
Author Organization [facility] Address [address] [place] [phone] Care Team Providers Care Transcribing Machine Mechanic Name Role Phone OlmanSb baeza Edwar Primary Care Provider Allergies Active Allergy Reactions Criticality Noted Date Comments Penicillins Other (See comments) Low 10/11/2009 Pork Extract Diarrhea Low 09/26/2022 Medications cefdinir (OMNICEF) 300 mg capsule Take 1 capsule (300 mg total) by mouth every 12 (twelve) hours 05/19/2023 Active ciprofloxacin-d exAMETHasone (CIPRODEX) otic suspension INSTILL 4 DROPS INTO EACH EAR EVERY 12 HOURS FOR 7 DAYS 05/19/2023 Active dextroamphetami ne-amphetamine (ADDERALL) 15 mg tablet Take 1 tablet (15 mg total) by mouth 2 (two) times a day Active DULoxetine DR (CYMBALTA) 60 mg capsule Take 1 capsule (60 mg total) by mouth daily 11/06/2019 Active famotidine (PEPCID) 40 mg tablet Take 1 tablet (40 mg total) by mouth daily 05/19/2023 Active losartan (COZAAR) 25 mg tablet TAKE 1 TABLET BY MOUTH ONCE DAILY. LAST REFILL UNTIL SEEN. Active topiramate (TOPAMAX) 25 mg tablet Take 1 tablet (25 mg total) by mouth daily 05/21/2023 Active ubrogepant (UBRELVY) 50 mg tablet TAKE 1 TABLET BY MOUTH DAILY NEEDED - MAY REPEAT ONE TIME FOR MIGRAINE MAXIMUM DAILY DOSE: 200MG/24 HOURS 06/05/2023 Active Active Problems No known active problems Medical History Medical History Date Comments ADHD (attention deficit hyperactivity disorder) Depression Migraines Raynaud phenomenon Allergic rhinitis SEASONAL Social History Tobacco Use Types Packs/Day Years Used Date Smoking Tobacco: Every Day Cigarettes Tobacco Cessation:Ready to Q uit: Not Asked Personal Safety Answer Date Recorded Getting School Help Needed Not on file 12/07 Comments Unknown Sex and Gender Information Value Date Recorded Sex Assigned at Not on file Legal Sex Female 3:[address] OF [address] FOREMAN Gender Identity Not on file Sexual Orientation Not on file Last Filed Vital Signs Vital Sign Reading Time Taken Comments Blood Pressure - - Pulse - - Temperature - - Respiratory Rate - - Oxygen Saturation - - Inhaled Oxygen Concentration - - Weight 77.1 kg (170 lb) 08/05/2023 3:37 PM CDT Height 167.6 cm (5' 6) 08/05/2023 3:37 PM CDT Body Mass Index 27.44 08/05/2023 3:37 PM CDT Plan of Treatment Health Maintenance Due Date Last Done Comments Breast Cancer Screening-Mammogram 1979 Cervical Cancer Screening 1979 Colon Cancer Screening-Colonoscopy 1979 Depression Screening 1979 Hepatitis C Screening 1979 DTaP/Tdap/Td Vaccine (1 - Tdap) 1990 Hepatitis B Screening 1997 Regular Well Visit/Exam 18-64 1997 Pneumococcal vaccine <65 (1 of 2 - PCV) 1998 Influenza Vaccine (#1) 2025 HPV Vaccines Aged Out No longer eligi ble based on patient's age to complete this topic [place] Care Teams Transcribing Machine Mechanic Relationship Specialty Start Date End Date Sb Corbett DO PCP - General Internal Medicine 08/05/23
--- OUTSIDE RECORDS SUMMARY | 2025-08-20 11:09 | XMS_ITS | Patient Health Record ---
Author Organization [facility] [employer] Address [address] [place] [address] Care Team Providers Care Scientific Diver Name Role Phone Sb Corbett DO Primary Care Provider Douglas Gillespie Unavailable [phone] Allergies Allergen (clinical drug ingredient) Drug/Non Drug Allergy documented on EMR Reaction Allergy Type Onset Date Status PORK DERIVED (PORCINE) (uncoded) Unknown Allergy 02/24/2024 Active Substance with penicillin structure and antibacterial mechanism of action (substance) Penicillins Unknown Drug Allergy 02/24/2024 Active Results Component Value Reference Range Notes UDT Reviewed date:05/11/2025 01:56:43 PM Interpretation: Performing Lab: Notes/Report: Amphetamine (AMP) P 0 - 1000 ng/ml Buprenorphine (BUP) N 0 - 10 ng/ml Oxazepam (BZO) N 0 - 300 ng/ml Cocaine (GUS) N 0 - 300 ng/ml Methamphetamine (mAMP) N 0 - 300 ng/ml Methylenedioxymethamphetamine (MDMA) N 0 - 500 ng/ml Morphine (MOP) N 0 - 25 ng/ml Methadone (MTD) N 0 - 300 ng/ml Oxycodone (OXY) N 0 - 300 ng/ml THC N 0 - 50 ng/ml x N 0 - 1000 ng/ml x N 0 - 1000 ng/ml x N 0 - 300 ng/ml x N 0 - 300 ng/ml Reason For Referral No Information Medications Medication SIG (Take, Route, Frequency, Duration) Notes Start Date End Date Status Topiramate 25 MG Tablet Oral 02/24/2024 Active Amphetamine-Dextroa mphetamine 15 MG Tablet 1 tablet Orally Twice a day; Duration: 30 days 07/14/2025 Active UBRELVY 50 MG TABLET *Reorder from [facility] for eRx and Interaction Alerts* 02/24/2024 Active DULoxetine HCl 60 MG Capsule Delayed Release Particles 1 capsule Oral Once a day; Duration: 90 days Active Losartan Potassium 25 MG Tablet Oral 02/24/2024 Active Immunizations Vaccine Route Administration Date Status Comme nts Pfizer [employer] Covid-19 Vac cine 2nd dose Unknown 12/09/2020 Administered Pfizer [employer] Covid-19 Vac cine 2nd dose Unknown 12/30/2020 Administered Influenza virus vaccine, quadrivalent (IIV4), split virus, 0.25 mL dosage Unknown 07/05/2020 Administered Social History Tobacco Use: Social History Observation Description Date Details (start date - stop date) Current Smoker NA - NA Sex Assigned At : Social History Observation Description Sex Assigned At Female Social History Miscellaneous: Social Info Question Answer Notes Advance Care Planning Are you your own decision-maker Yes Do you have Power of Treasurer for Health or [facility]? No Tobacco Use: Social Info Question Answer Notes Tobacco Control (Standard) Tobacco use: Current smoker Additional Details Category Social Info Options Details Migrated Social History Migrated Social History Alcohol Intake: Occasional 08/16/2020,Tobacco Years: Current some days smoker 10/19/2021,Smoking Status: 11/25/2023 Problems Problem Type SNOMED Code ICD Code Onset Dates Problem Status W/U Status Risk Notes Problem Major depression, single episode, in complete remission (16738090) Major depressive disorder, single episode, in full remission (F32.5) Active confirmed Problem Generalized anxiety disorder (17893497) Generalized anxiety disorder (F41.1) Active confirmed Problem Attention deficit hyperactivity disorder, combined type (78823003) Attention-deficit hyperactivity disorder, combined type (F90.2) 02/24/20 24 Active confirmed Vital Signs Heart Rate 88 /min 05/11/2025 Height-cm 167.64 cm 05/11/2025 Blood pressure diastolic 88 mm Hg 05/11/2025 Weight-kg 88.45 kg 05/11/2025 Height 66.00 in 05/11/2025 Blood pressure systolic 134 mm Hg 05/11/2025 Weight 195 lbs 05/11/2025 BMI 31.47 kg/m2 05/11/2025 Encounters Encounter Location Date Provider Diagnosis [facility] [employer] [facility] [address] [place] [address] 10/13/2024 Douglas Garcia Attention-deficit hyperactivity disorder, combined type F90.2 ; Generalized anxiety disorder F41.1 and Major depressive disorder, single episode, in full remission F32.5 [facility] [employer], [facility] [address] [place] [address] 02/08/2025 Douglas Garcia Encounter for screen ing for depression Z13.31 ; Encounter for screening for cardiovascular disorders Z13.6 ; Dietary counseling and surveillance Z71.3 ; Nicotine use Z72.0 ; Attention-deficit hyperactivity disorder, combined type F90.2 ; Generalized anxiety disorder F41.1 and Major depressive disorder, single episode, in full remission F32.5 [facility], [facility] [address] [place] [address] 05/11/2025 Douglas Garcia Nicotine use Z72.0 ; Attention-deficit hyperactivity disorder, combined type F90.2 ; Generalized anxiety disorder F41.1 and Major depressive disorder, single episode, in full remission F32.5 [facility], [facility] [address] [place] [address] 09/24/2024 Douglas Garcia Attention-deficit hyperactivity disorder, combined type F90.2 [facility] [address] [place] [address] 10/31/2024 Douglas Garcia Attention-deficit hyperactivity disorder, combined type F90.2 [facility] [address] [place] [address] 12/18/2024 Douglas Garcia Major depressive disorder, single episode, in full remission F32.5 and Attention-deficit hyperactivity disorder, combined type F90.2 [facility], [facility] [address] [place] [address] 01/26/2025 Douglas Garcia Attention-deficit hyperactivity disorder, combined type F90.2 [facility], [facility] [address] [place] [address] 03/03/2025 Douglas Garcia Attention-deficit hyperactivity disorder, combined type F90.2 [facility] [employer] [facility] [address] [place] [address] 04/11/2025 Douglas Garcia Attention-deficit hyperactivity disorder, combined type F90.2 [facility] [employer] [facility] [address] [place] [address] 07/13/2025 Douglas Garcia Attention-deficit hyperactivity disorder, combined type F90.2 [facility] [employer] [facility] [address] [facility] [address] [place] [address] 08/05/2025 Douglas Garcia Major depressive disorder, single episode, in full remission F32.5 Assessments Encounter Date Diagnosis (ICD Code) Assessment Notes Treatment Notes Treatment Clinical Notes Section Notes 01/26/2025 Attention-deficit hyperactivity disorder, combined type (ICD-10 - F90.2) 09/24/2024 Attention-deficit hyperactivity disorder, combined type (ICD-10 - F90.2) 10/13/2024 Attention-deficit hyperactivity disorder, combined type (ICD-10 - F90.2) Adderall 15mg bid BOXED WARNINGCaution with history of drug dependence or alcoholism. Marked tolerance and psychological dependence may result from chronic abusive use. Bebo psychotic episodes may occur, especially with parenteral abuse. Careful supervision required for withdrawal from abusive use to avoid severe depression. Withdrawal following chronic use may unmask symptoms of underlying disorder that may require follow-up 1. ADHD: - Patient reports adherence to Adderall 15 mg twice a day and states it is working well. Plan: - No changes in medication needed at this time. - Patient will notify the provider when a refill is needed. 2. Depression and Anxiety: - Patient reports no significant increase in depression or anxiety symptoms. - Currently on Duloxetine 60 mg daily, which appears to be managing symptoms effectively. Plan: - Will send a refill for Duloxetine 60 mg daily. 3. General Health and Well-being: - Patient has made positive changes in their environment, such as remodeling their office, which has improved their mood and well-being. Plan: - Encourage the patient to continue engaging in activities that promote mental health and overall well-being. Follow-up: - Patient to contact the provider if any changes in symptoms or concerns arise. 10/31/2024 Attention-deficit hyperactivity disorder, combined type (ICD-10 - F90.2) 12/18/2024 Major depressive disorder, single episode, in full remission (ICD-10 - F32.5) 02/08/2025 Encounter for screening for depression (ICD-10 - Z13.31) 03/03/2025 Attention-deficit hyperactivity disorder, combined type (ICD-10 - F90.2) 04/11/2025 Attention-deficit hyperactivity disorder, combined type (ICD-10 - F90.2) 05/11/2025 Nicotine use (ICD-10 - Z72.0) 07/13/2025 Attention-deficit hyperactivity disorder, combined type (ICD-10 - F90.2) 08/05/2025 Major depressive disorder, single episode, in full remission (ICD-10 - F32.5) 05/11/2025 Attention-deficit hyperactivity disorder, combined type (ICD-10 - F90.2) Adderall 15mg bid BOXED WARNINGCaution with history of drug dependence or alcoholism. Marked tolerance and psychological dependence may result from chronic abusive use. Bebo psychotic episodes may occur, especially with parenteral abuse. Careful supervision required for withdrawal from abusive use to avoid severe depression. Withdrawal following chronic use may unmask symptoms of underlying disorder that may require follow-up 12/18/2024 Attention-deficit hyperactivity disorder, combined type (ICD-10 - F90.2) 10/13/2024 Generalized anxiety disorder (ICD-10 - F41.1) stable 1. ADHD: - Patient reports adherence to Adderall 15 mg twice a day and states it is working well. Plan: - No changes in medication needed at this time. - Patient will notify the provider when a refill is needed. 2. Depression and Anxiety: - Patient reports no significant increase in depression or anxiety symptoms. - Currently on Duloxetine 60 mg daily, which appears to be managing symptoms effectively. Plan: - Will send a refill for Duloxetine 60 mg daily. 3. General Health and Well-being: - Patient has made positive changes in their environment, such as remodeling their office, which has improved their mood and well-being. Plan: - Encourage the patient to continue engaging in activities that promote mental health and overall well-being. Follow-up: - Patient to contact the provider if any changes in symptoms or concerns arise. 02/08/2025 Encounter for screening for cardiovascular disorders (ICD-10 - Z13.6) 02/08/2025 Dietary counseling and surveillance (ICD-10 - Z71.3) 10/13/2024 Major depressive disorder, single episode, in full remission (ICD-10 - F32.5) 1. ADHD: - Patient reports adherence to Adderall 15 mg twice a day and states it is working well. Plan: - No changes in medication needed at this time. - Patient will notify the provider when a refill is needed. 2. Depression and Anxiety: - Patient reports no significant increase in depression or anxiety symptoms. - Currently on Duloxetine 60 mg daily, which appears to be managing symptoms effectively. Plan: - Will send a refill for Duloxetine 60 mg daily. 3. General Health and Well-being: - Patient has made positive changes in their environment, such as remodeling their office, which has improved their mood and well-being. Plan: - Encourage the patient to continue engaging in activities that promote mental health and overall well-being. Follow-up: - Patient to contact the provider if any changes in symptoms or concerns arise. 05/11/2025 Generalized anxiety disorder (ICD-10 - F41.1) stable 05/11/2025 Major depressive disorder, single episode, in full remission (ICD-10 - F32.5) 02/08/2025 Nicotine use (ICD-10 - Z72.0) 02/08/2025 Attention-deficit hyperactivity disorder, combined type (ICD-10 - F90.2) Adderall 15mg bid BOXED WARNINGCaution with history of drug dependence or alcoholism. Marked tolerance and psychological dependence may result from chronic abusive use. Bebo psychotic episodes may occur, especially with parenteral abuse. Careful supervision required for withdrawal from abusive use to avoid severe depression. Withdrawal following chronic use may unmask symptoms of underlying disorder that may require follow-up 02/08/2025 Generalized anxiety disorder (ICD-10 - F41.1) stable 02/08/2025 Major depressive disorder, single episode, in full remission (ICD-10 - F32.5) 02/08/2025 Other Attention Deficit Disorder Assessment: Patient reports good response to current medication regimen. She is taking Adderall 15 mg twice daily, with the second dose taken at the office in the afternoon. Patient notes improved focus and productivity with this schedule. Her distribution center assistant helps remind her to take the afternoon dose when needed. Plan: - Continue Adderall 15 mg PO BID - Maintain current medication supply and refill schedule Depression Assessment: Patient reports mood as okay with some recent stress. Current treatment with duloxetine 60 mg appears to be effective in managing depressive symptoms. Plan: - Continue duloxetine 60 mg PO daily - Monitor mood and stress levels Anxiety Assessment: Patient's anxiety appears to be well-managed on current medication regimen. She demonstrates insight into anxiety management, noting the importance of cognitive therapy and coping mechanisms for others she encounters with anxiety. Plan: - Continue current medication regimen - Encourage ongoing use of coping strategies and stress management techniques the note is transcribed using speech recognition software. It is a reflection of a visit with the patient. It might have some inaccuracy, including medication names and transcribing errors, though efforts have been made to correct them. 05/11/2025 Erendira James, an adult female patient with ADHD, presents for medication management and reports no current depression or anxiety symptoms. Attention-Defici t/Hyperactivity Disorder (ADHD) Assessment: Patient reports continued efficacy of current ADHD medication regimen. She notes the ability to discern when the second dose is needed, indicating good medication awareness and adherence. The patient's distribution center assistant provides reminders for medication administration, suggesting a supportive system in place for managing her condition. Plan: - Continue Adderall 15 mg PO BID - Maintain current medication reminder system with distribution center assistant's help the note is transcribed using speech recognition software. It is a reflection of a visit with the patient. It might have some inaccuracy, including medication names and transcribing errors, though efforts have been made to correct them. Plan Of Treatment Next Appt Details Provider Name:Douglas bernard, 08/31/2025 08:45:00 AM, [address], [facility] [address], [place], [address], Insurance Providers Payer Name Payer Address Payer Phone Subscriber Number Group Number Insured Name Patient Relationship to Insured Coverage Start Date Coverage End Date [employer] [employer] [address] [place] [address] [id number] LEANNA STEWARD Self - patient is the insured Medical (General) History Medical History History ICD Code Problems: Attention deficit hyperactivit y disorder Drug indicated Generalized anxiety disorder Influenza vaccination given Long-term current use of drug therapy Major depression in remission Mild recurrent major depression , Imported from [place]: Co ndyloma, Molluscum contagiosum, overactive bladder, stress urinary incontinence, and intractable chronic migraine without aura. The patient has had multiple office visits, procedure visits, and refills from 2023 to 2024. The patient also had encounters with Bertin Leggett MD, and JANNETH Amin, at different times for gynecologic examinations, urinary tract infectious disease, dysmenorrhea, and a lesion of the vulva. The patient also had a preventative visit with Silvia Peterson NP, in 2023 for issues including genital Molluscum contagiosum, menopausal symptoms, and urinary incontinence. Imported from [place]: On 07/25/2020, a urinalysis was conducted by Dr. Bertin Leggett, revealing a urinary tract infectious disease. A preventative visit on 07/07/2020 included a gynecologic examination. On 07/13/2021, another gynecologic examination was performed during a preventative visit. An office visit on 09/18/2021 addressed dysmenorrhea. A total laparoscopic hysterectomy was performed on 11/13/2021, followed by a post-operative visit on 11/20/2021 for bacterial vaginosis. On 08/20/2024, a preventative visit included screening mammography and examination for menopausal symptoms and urinary incontinence. A biopsy of the vulva was conducted on 02/05/2023 due to a lesion. On 02/19/2023, a preventative visit included screening for malignant neoplasm of the breast. Multiple procedure visits for intractable chronic migraine were noted, including on 08/12/2024, 05/20/2024, 11/05/2024, 01/28/2025, and 05/05/2025. Refills for migraine treatment were recorded on 08/26/2024, 11/28/2024, and 03/04/2025. An office visit on 11/10/2024 addressed condyloma, molluscum contagiosum, overactive bladder, and stress urinary incontinence. Surgical History Surgery Date(Month/Year) Hysterectomy (17565) 11/11/2021
[2025-08-20 13:39] LABS: Influenza A QL RT-PCR Negative (Negative); Influenza B QL RT-PCR Negative (Negative); RSV RNA, RT-PCR Negative (Negative); SARS-CoV-2 RNA PCR Negative (Negative)
== END 2025-08-20 10:27 | disposition home or self-care (01) ==
LOC: ANHGOSHLAB 10:27
PROVIDERS: PCP Internal Medicine
DX: R68.89 Other general symptoms and signs (principal); Z20.822 Contact with and (suspected) exposure to COVID-19
CPT/HCPCS: 87637